=== PATIENT | male | born 1965 | race Caucasian/White ===

== ENCOUNTER 2019-01-31 14:12 | Outpatient (CLI) | payer MEDICARE, OTHER, SELFPAY ==
[2019-01-31 14:45] LABS: Abs Immature Grans 0.02 k/cumm (0.0-0.09); Absolute Eosinophil Count 0.05 k/cumm (0.0-0.7); HCT 49.9 % (40.0-50.0); HGB 17.1 g/dL (13.5-17.5); Mean Corp. HGB Concentration 34.3 g/dL (32.0-36.0); Mean Corpuscular Hemoglobin 32.3 pg (27.0-33.0); Mean Corpuscular Volume 94.3 fL (80-95); Mean Platelet Volume 9.6 fL (8.0-11.0); Platelet Count 89 x1000/uL (130-400); RBC 5.29 m/cumm (4.50-6.00); RBC Distribution Width 14.5 % (11.8-14.1); White Blood Cell Count 5.49 k/cumm (4.4-10.8)
[2019-01-31 14:58] LABS: ALT 35 U/L (12-78); AST 26 U/L (15-37); Albumin 3.8 g/dL (3.4-5.0); Alkaline Phosphatase 63 U/L (46-116); Anion Gap 11.1 mmol/L (3-11); BUN 12 mg/dL (7-18); Bilirubin, Total 0.6 mg/dL (0.2-1.0); CO2 25.9 mmol/L (21.0-32.0); CREATININE 0.96 mg/dL (0.70-1.30); Chloride 103 mmol/L (98-107); Glucose 97 mg/dL (70-100); Sodium 140 mmol/L (136-145)
[2019-01-31 15:36] LABS: Absolute Lymphocyte Count 3.51 k/cumm (1.2-3.4); Absolute Monocyte Count 0.77 k/cumm (0.11-0.7); Absolute Neutrophil Count 1.15 k/cumm (1.2-6.7); Atypical Lymphocytes % 16
[2019-01-31 15:37] LABS: Diff Comment Manual Differential; RBC Morphology Normal
== END 2019-01-31 14:32 ==
PROVIDERS: PCP Physician Assistant Medical; Visit Provider Internal Medicine Hematology & Oncology
DX: C91.40 Hairy cell leukemia not having achieved remission (principal)
CPT/HCPCS: 36415; 80053; 85025

== ENCOUNTER 2019-06-15 12:02 | Outpatient (CLI) | payer MEDICARE, OTHER, SELFPAY ==
[2019-06-15 12:26] LABS: Abs Immature Grans 0.04 k/cumm (0.0-0.09); HCT 46.5 % (40.0-50.0); HGB 16.1 g/dL (13.5-17.5); Mean Corp. HGB Concentration 34.6 g/dL (32.0-36.0); Mean Corpuscular Hemoglobin 33.3 pg (27.0-33.0); Mean Corpuscular Volume 96.3 fL (80-95); Mean Platelet Volume 9.4 fL (8.0-11.0); RBC 4.83 m/cumm (4.50-6.00); RBC Distribution Width 14.1 % (11.8-14.1); White Blood Cell Count 5.27 k/cumm (4.4-10.8)
[2019-06-15 12:32] LABS: ALT 28 U/L (16-63); AST 23 U/L (15-37); Albumin 3.5 g/dL (3.4-5.0); Alkaline Phosphatase 56 U/L (46-116); Anion Gap 10.2 mmol/L (3-11); BUN 16 mg/dL (7-18); Bilirubin, Total 0.6 mg/dL (0.2-1.0); CO2 26.8 mmol/L (21.0-32.0); CREATININE 0.95 mg/dL (0.70-1.30); Calcium 8.7 mg/dL (8.5-10.1); Chloride 104 mmol/L (98-107); Glucose 121 mg/dL (74-106); Sodium 141 mmol/L (136-145); Total Protein 7.5 g/dL (6.4-8.2)
[2019-06-15 12:37] LABS: Platelet Count 81 x1000/uL (130-400)
[2019-06-15 12:58] LABS: Absolute Neutrophil Count 1.32 k/cumm (1.2-6.7)
[2019-06-15 13:01] LABS: Absolute Lymphocyte Count 3.69 k/cumm (1.2-3.4); Absolute Monocyte Count 0.16 k/cumm (0.11-0.7); Atypical Lymphocytes % 8; Diff Comment Manual Differential; Nucleated RBC 2 /100WBC; RBC Morphology Normal
[2019-06-15 13:03] LABS: Absolute Eosinophil Count 0.11 k/cumm (0.0-0.7)
== END 2019-06-15 12:22 ==
PROVIDERS: PCP Physician Assistant Medical; Visit Provider Internal Medicine Hematology & Oncology
DX: C91.40 Hairy cell leukemia not having achieved remission (principal)
CPT/HCPCS: 36415; 80053; 85025